=== PATIENT | male | born 1985 | race Caucasian/White ===

== ENCOUNTER 2022-04-18 16:25 | Observation (INO) ==
[2022-04-18] MEDS ORDERED: Ondansetron 4 MG/2 ML VIAL IVP ONE (16:40)
[2022-04-18] MEDS ORDERED: 0.9 % Sodium Chloride 1,000 ML IVC ONE (16:40)
[2022-04-18] MEDS ORDERED: Acetaminophen IV 1,000 MG/100 ML BAG IVPB ONE (16:41)
[2022-04-18] MEDS ORDERED: Iopamidol - 370 500 ML MLS IVP ONE (16:42)
[2022-04-18] MEDS ORDERED: Morphine Sulfate 2 MG/ML SYRINGE IVP ONE (16:45)
[2022-04-18 17:18] LABS: Basophils # 0.1 K/mcL (0.0-0.2); Basophils % 0.4 %; Hematocrit 46.2 % (37.5-50.1); Hemoglobin 15.6 g/dL (12.9-16.9); Immature Granulocytes % 0.4 % (0-4); Lymphocytes # 1.3 K/mcL (0.6-4.6); Lymphocytes % 9.9 %; Mean Corpuscular HGB Conc 33.8 g/dL (31.6-35.5); Mean Corpuscular Hemoglobin 30.8 pg (28.0-33.3); Mean Corpuscular Volume 91.1 fL (83.0-100.0); Mean Platelet Volume 10.1 fL (9.4-12.4); Monocytes # 0.4 K/mcL (0.0-1.3); Monocytes % 3.1 %; Neutrophils # 11.6 K/mcL (1.6-8.9); Platelet Count 358 K/mcL (140-400); Red Blood Count 5.07 M/mcL (4.19-5.50); Red Cell Distribution Width 12.9 % (11.5-14.5); Segmented Neutrophils % 86.2 %; White Blood Count 13.4 K/mcL (4.3-11.1)
[2022-04-18 17:24] LABS: INR 1.1; Prothrombin Time 12.4 Seconds (9.4-12.1)
[2022-04-18 17:34] LABS: Alanine Aminotransferase 21 Units/L (7-52); Albumin/Globulin Ratio 1.8 (1.1-2.2); Alkaline Phosphatase 88 Units/L (34-104); Amylase 34 Units/L (29-103); Aspartate Amino Transferase 30 Units/L (13-39); BUN/Creatinine Ratio 23 (6-26); Bilirubin,Direct 0.2 mg/dL (0.0-0.2); Bilirubin,Indirect 0.7 mg/dL (0.0-1.0); Bilirubin,Total 0.9 mg/dL (0.3-1.0); Blood Urea Nitrogen 19 mg/dL (6-20); Calcium 10.9 mg/dL (8.6-10.3); Carbon Dioxide 22 mEq/L (23-29); Chloride 101 mEq/L (98-107); Globulin 2.8 g/dL (2.4-3.5); Glucose 93 mg/dL (70-105); Lipase 11 Units/L (11-82); Osmolality,Calculated 286 (280-300); Potassium 3.7 mEq/L (3.5-5.1); Sodium 137 mEq/L (136-145); Total Protein 7.8 g/dL (6.4-8.9); Troponin I < 0.03 ng/mL (< 0.04)
[2022-04-18] MEDS ORDERED: Melatonin 3 MG TABLET PO PRN (19:36)
[2022-04-18] MEDS ORDERED: Ondansetron 4 MG/2 ML VIAL IVP PRN (19:36)
[2022-04-18] MEDS ORDERED: Naloxone 0.4 MG/ML INJ IVP PRN (19:36)
[2022-04-18] MEDS ORDERED: *HR* Dextrose 50 % in Water (Syg) 50 ML SYRINGE IVP PRN (19:41)
[2022-04-18] MEDS ORDERED: Dextrose Gel 15 GM/37.5 ML TUBE PO PRN ×2 (19:41)
[2022-04-18] MEDS ORDERED: D5% in Water 1,000 ML IVC PRN (19:41)
[2022-04-18] MEDS: 0.9 % Sodium Chloride 1,000 ML IVC SCH (20:58)
[2022-04-18 21:10] LABS: Adenovirus Not Detected (Not Detect); Bordetella Pertussis Not Detected (Not Detect); Chlamydophila pneumoniae Not Detected (Not Detect); Coronavirus 229E Not Detected (Not Detect); Coronavirus HKU1 Not Detected (Not Detect); Coronavirus NL63 Not Detected (Not Detect); Coronavirus OC43 Not Detected (Not Detect); Human Metapneumovirus Not Detected (Not Detect); Human Rhinovirus/Enterovirus Not Detected (Not Detect); Influenza A Subtype 2009 H1 Not Detected (Not Detect); Influenza B Not Detected (Not Detect); Mycoplasma pneumoniae Not Detected (Not Detect); Parainfluenza Virus 1 Not Detected (Not Detect); Parainfluenza Virus 2 Not Detected (Not Detect); Parainfluenza Virus 3 Not Detected (Not Detect); Parainfluenza Virus 4 Not Detected (Not Detect); Respiratory Syncytial Virus Not Detected (Not Detect); SARS-CoV-2 Not Detected (Not Detect)
[2022-04-18] MEDS: Nicotine 21 MG PATCH.TD24 TD SCH (21:13)
[2022-04-19] MEDS: Nicotine 21 MG PATCH.TD24 TD SCH (10:15)
[2022-04-19] MEDS: 0.9 % Sodium Chloride 1,000 ML IVC SCH (10:15)
[2022-04-19 11:17] LABS: INR 1.1; Prothrombin Time 11.7 Seconds (9.4-12.1)
[2022-04-19 11:20] LABS: Activated Partial Thrombo Time 36.3 Seconds (26.0-36.0)
[2022-04-19 11:37] LABS: BUN/Creatinine Ratio 24 (6-26); Blood Urea Nitrogen 20 mg/dL (6-20); Calcium 9.1 mg/dL (8.6-10.3); Carbon Dioxide 23 mEq/L (23-29); Chloride 107 mEq/L (98-107); Glucose 78 mg/dL (70-105); Magnesium 1.9 mg/dL (1.6-2.6); Osmolality,Calculated 289 (280-300); Potassium 3.7 mEq/L (3.5-5.1); Sodium 139 mEq/L (136-145)
[2022-04-19 11:59] LABS: Basophils % 0.3 %; Eosinophils % 0.3 %; Hematocrit 44.2 % (37.5-50.1); Hemoglobin 14.8 g/dL (12.9-16.9); Immature Granulocytes % 0.4 % (0-4); Lymphocytes # 2.4 K/mcL (0.6-4.6); Lymphocytes % 18.8 %; Mean Corpuscular HGB Conc 33.5 g/dL (31.6-35.5); Mean Corpuscular Hemoglobin 31.2 pg (28.0-33.3); Mean Corpuscular Volume 93.1 fL (83.0-100.0); Mean Platelet Volume 10.5 fL (9.4-12.4); Monocytes # 1.1 K/mcL (0.0-1.3); Monocytes % 8.8 %; Neutrophils # 8.9 K/mcL (1.6-8.9); Platelet Count 338 K/mcL (140-400); Red Blood Count 4.75 M/mcL (4.19-5.50); Red Cell Distribution Width 13.2 % (11.5-14.5); Segmented Neutrophils % 71.4 %; White Blood Count 12.5 K/mcL (4.3-11.1)
[2022-04-19 14:21] LABS: Bilirubin,Urine Negative (Negative); Blood,Urine Negative (Negative); Clarity,Urine Clear (Clear); Color,Urine Yellow (Yellow); Glucose,Urine (UA) Normal (Normal); Hyaline Casts,Urine Few per lpf (None Seen); Ketones,Urine 150 mg/dL (Negative); Leukocyte Esterase,Urine Negative (Negative); Mucus,Urine Few per lpf (None-Few); Nitrite,Urine Negative (Negative); Protein,Urine 100 mg/dL (Neg-Trace); RBC,Urine 0-3 per hpf (0-3); Specific Gravity,Urine > 1.030 (1.010-1.025); Urobilinogen,Urine Normal (Normal); WBC,Urine 0-3 per hpf (0-3)
[2022-04-19 14:39] LABS: Amphetamine Screen,Urine Positive ng/mL (Cutoff=1000); Barbiturate Screen,Urine Negative ng/mL (Cutoff=200); Benzodiazepines Screen,Urine Negative ng/mL (Cutoff=200); Cannabinoid Screen,Urine Positive ng/mL (Cutoff = 50); Cocaine Screen,Urine Negative ng/mL (Cutoff= 300); Opiate Screen,Urine Positive ng/mL (Cutoff=300); Phencyclidine Screen,Urine Negative ng/mL (Cutoff=25)
[2022-04-19] MEDS: *HR* Heparin 5,000 UNIT/ML VIAL SQ SCH (17:50)
[2022-04-19] MEDS ORDERED: Ipratropium/Albuterol Neb 3 ML IH PRN (19:38)
[2022-04-20 03:14] LABS: Hematocrit 41.5 % (37.5-50.1); Hemoglobin 13.8 g/dL (12.9-16.9); Mean Corpuscular HGB Conc 33.3 g/dL (31.6-35.5); Mean Corpuscular Volume 93.3 fL (83.0-100.0); Mean Platelet Volume 10.2 fL (9.4-12.4); Platelet Count 308 K/mcL (140-400); Red Blood Count 4.45 M/mcL (4.19-5.50); Red Cell Distribution Width 12.8 % (11.5-14.5); White Blood Count 13.4 K/mcL (4.3-11.1)
[2022-04-20 03:40] LABS: BUN/Creatinine Ratio 27 (6-26); Blood Urea Nitrogen 18 mg/dL (6-20); Calcium 8.5 mg/dL (8.6-10.3); Carbon Dioxide 22 mEq/L (23-29); Chloride 108 mEq/L (98-107); Glucose 94 mg/dL (70-105); Osmolality,Calculated 288 (280-300); Potassium 3.6 mEq/L (3.5-5.1); Sodium 138 mEq/L (136-145)
[2022-04-20] MEDS: *HR* Heparin 5,000 UNIT/ML VIAL SQ SCH ×2 (05:12→18:23)
[2022-04-20] MEDS: Nicotine 21 MG PATCH.TD24 TD SCH (10:00)
[2022-04-20] MEDS: 0.9 % Sodium Chloride 1,000 ML IVC SCH (10:01)
[2022-04-20 16:20] VITALS: BP 135/85; PULSE 63; TEMP 97.9; O2SAT 63
== END 2022-04-20 19:15 | disposition home or self-care (01) ==
LOC: EMEROOARM 16:25 → 3ANU 16:25 → SUATTDRO 19:46 → 3ANU 20:37
PROVIDERS: ADMIT Internal Medicine; ATTEND Internal Medicine